=== PATIENT | female | born 1975 | race Caucasian/White ===

== ENCOUNTER 2020-06-10 11:35 | Inpatient (IN) | payer OTHER ==
[2020-06-10 12:14] VITALS: BMI 24.4
[2020-06-10] MEDS ORDERED: IBUPROFEN 400 MG TABLET (FP) PO PRN (13:02)
[2020-06-10] MEDS ORDERED: MENTHOL/PHENOL 1 EACH UD MM PRN (13:02)
[2020-06-10] MEDS ORDERED: MAGNESIUM CITRATE 300 ML BOTTLE PO PRN (13:02)
[2020-06-10] MEDS ORDERED: METHOCARBAMOL 500 MG TABLET PO PRN (13:02)
[2020-06-10] MEDS ORDERED: ACETAMINOPHEN 325 MG TABLET (FP) PO PRN (13:02)
[2020-06-10] MEDS ORDERED: BISMUTH SUBSALICYLATE 524 MG/30 ML UD PO PRN (13:02)
[2020-06-10] MEDS: hydrOXYzine PAMOATE 25 MG CAPSULE (FP) PO SCH ×3 (14:50→22:16)
[2020-06-10] MEDS: chlordiazePOXIDE HCL 25 MG CAPSULE PO PRN ×2 (14:50→18:31)
[2020-06-10 14:57] LABS: HEMATOCRIT 40.9 % (32.4-45.2); HEMOGLOBIN 13.6 GM/dL (10.7-15.3); MCH 29.7 pg (25.7-33.7); MCHC 33.2 g/dl (32.0-36.0); MEAN CELL VOLUME 89.5 fl (80-96); MEAN PLT VOLUME 7.9 fl (7.5-11.1); PLATELET COUNT 270 K/MM3 (134-434); RBC 4.57 M/mm3 (3.60-5.2); RDW 17.1 % (11.6-15.6)
[2020-06-10] MEDS: PRENATAL VITAMINS W/ FOLIC ACID TABLET (FP) PO SCH (14:58)
[2020-06-10 14:59] LABS: POTASSIUM 3.2 mmol/L (3.5-5.1)
[2020-06-10 15:03] LABS: ALBUMIN 3.6 g/dl (3.4-5.0); BLOOD UREA NITROGEN 11.2 mg/dL (7-18); CALCIUM 8.8 mg/dL (8.5-10.1)
[2020-06-10 15:06] LABS: CREATININE 0.5 mg/dL (0.55-1.3)
[2020-06-10 15:08] LABS: BILIRUBIN,TOTAL 1.2 mg/dL (0.2-1); TOT PROT 7.1 g/dl (6.4-8.2)
[2020-06-10] MEDS: chlordiazePOXIDE HCL 25 MG CAPSULE PO SCH ×2 (17:26→22:16)
[2020-06-10] MEDS: ONDANSETRON *ODT* 4 MG TABLET SL PRN (18:30)
[2020-06-10] MEDS: MAG HYDROX/AL HYDROX/SIMETH 30 ML UNIT-DOSE CUP PO PRN (20:42)
[2020-06-10] MEDS: THIAMINE HCL 100 MG TABLET (FP) PO SCH (22:16)
[2020-06-10] MEDS: traZODone HCL 50 MG TABLET (FP) PO SCH (22:16)
[2020-06-10] MEDS: MELATONIN 5 MG TABLETS PO SCH (22:16)
[2020-06-10] MEDS: PRAZOSIN HCL 1 MG CAPSULE PO SCH (22:17)
[2020-06-11] MEDS: hydrOXYzine PAMOATE 25 MG CAPSULE (FP) PO SCH ×5 (05:58→22:30)
[2020-06-11] MEDS: chlordiazePOXIDE HCL 25 MG CAPSULE PO SCH ×2 (05:58→10:18)
[2020-06-11] MEDS: PANTOPRAZOLE 40 MG TABLET PO SCH (10:17)
[2020-06-11] MEDS: PRENATAL VITAMINS W/ FOLIC ACID TABLET (FP) PO SCH (10:17)
[2020-06-11] MEDS ORDERED: LORazepam 1 MG TABLET PO PRN (11:38)
[2020-06-11] MEDS: ACETAMINOPHEN 325 MG TABLET (FP) PO PRN (15:57)
[2020-06-11] MEDS: MAG HYDROX/AL HYDROX/SIMETH 30 ML UNIT-DOSE CUP PO PRN (15:58)
[2020-06-11] MEDS: LORazepam 2 MG TABLET PO SCH ×2 (17:37→22:32)
[2020-06-11] MEDS: THIAMINE HCL 100 MG TABLET (FP) PO SCH (22:29)
[2020-06-11] MEDS: PRAZOSIN HCL 1 MG CAPSULE PO SCH (22:30)
[2020-06-11] MEDS: traZODone HCL 50 MG TABLET (FP) PO SCH (22:30)
[2020-06-11] MEDS: MELATONIN 5 MG TABLETS PO SCH (22:30)
[2020-06-12] MEDS ORDERED: chlordiazePOXIDE HCL 25 MG CAPSULE PO SCH (05:00)
[2020-06-12] MEDS: hydrOXYzine PAMOATE 25 MG CAPSULE (FP) PO SCH ×5 (06:08→22:30)
[2020-06-12] MEDS: LORazepam 2 MG TABLET PO SCH ×4 (06:08→22:30)
[2020-06-12] MEDS: PANTOPRAZOLE 40 MG TABLET PO SCH (10:18)
[2020-06-12] MEDS: PRENATAL VITAMINS W/ FOLIC ACID TABLET (FP) PO SCH (10:19)
[2020-06-12] MEDS: MAGNESIUM HYDROX 2400MG/30ML ORAL SUSPENSION 30 ML CUP PO PRN (14:22)
[2020-06-12] MEDS: traZODone HCL 50 MG TABLET (FP) PO SCH (22:29)
[2020-06-12] MEDS: THIAMINE HCL 100 MG TABLET (FP) PO SCH (22:29)
[2020-06-12] MEDS: PRAZOSIN HCL 1 MG CAPSULE PO SCH (22:29)
[2020-06-12] MEDS: MELATONIN 5 MG TABLETS PO SCH (22:29)
[2020-06-13] MEDS ORDERED: chlordiazePOXIDE HCL 10 MG CAPSULE PO PRN
[2020-06-13] MEDS ORDERED: chlordiazePOXIDE HCL 10 MG CAPSULE PO SCH (05:00)
[2020-06-13] MEDS: LORazepam 1 MG TABLET PO SCH ×4 (06:16→22:35)
[2020-06-13] MEDS: hydrOXYzine PAMOATE 25 MG CAPSULE (FP) PO SCH ×5 (06:16→22:35)
[2020-06-13] MEDS: MAGNESIUM HYDROX 2400MG/30ML ORAL SUSPENSION 30 ML CUP PO PRN (06:16)
[2020-06-13 07:08] LABS: SARS-CoV-2 NAA Not Detected (Not Detected)
[2020-06-13] MEDS: ONDANSETRON *ODT* 4 MG TABLET SL PRN (09:27)
[2020-06-13] MEDS: PRENATAL VITAMINS W/ FOLIC ACID TABLET (FP) PO SCH (10:32)
[2020-06-13] MEDS: PANTOPRAZOLE 40 MG TABLET PO SCH (10:32)
[2020-06-13] MEDS ORDERED: POTASSIUM CHLORIDE TABS 20 MEQ TABLET.ER (FP) PO ONE (12:59)
[2020-06-13] MEDS: THIAMINE HCL 100 MG TABLET (FP) PO SCH (22:35)
[2020-06-13] MEDS: PRAZOSIN HCL 1 MG CAPSULE PO SCH (22:35)
[2020-06-13] MEDS: traZODone HCL 50 MG TABLET (FP) PO SCH (22:35)
[2020-06-13] MEDS: BISACODYL 5 MG TABLET.DR (FP) PO PRN (22:36)
[2020-06-13] MEDS: MELATONIN 5 MG TABLETS PO SCH (23:15)
[2020-06-14] MEDS ORDERED: LORazepam 0.5 MG TABLET PO PRN
[2020-06-14] MEDS ORDERED: chlordiazePOXIDE HCL 10 MG CAPSULE PO SCH (05:00)
[2020-06-14] MEDS: hydrOXYzine PAMOATE 25 MG CAPSULE (FP) PO SCH ×5 (06:04→22:34)
[2020-06-14] MEDS: LORazepam 0.5 MG TABLET PO SCH ×4 (06:04→22:32)
[2020-06-14] MEDS: MAGNESIUM HYDROX 2400MG/30ML ORAL SUSPENSION 30 ML CUP PO PRN (06:05)
[2020-06-14] MEDS: ACETAMINOPHEN 325 MG TABLET (FP) PO PRN (06:06)
[2020-06-14] MEDS: PANTOPRAZOLE 40 MG TABLET PO SCH (10:44)
[2020-06-14] MEDS: PRENATAL VITAMINS W/ FOLIC ACID TABLET (FP) PO SCH (10:44)
[2020-06-14] MEDS: BISACODYL 5 MG TABLET.DR (FP) PO PRN (10:44)
[2020-06-14] MEDS: THIAMINE HCL 100 MG TABLET (FP) PO SCH (22:32)
[2020-06-14] MEDS: traZODone HCL 50 MG TABLET (FP) PO SCH (22:32)
[2020-06-14] MEDS: PRAZOSIN HCL 1 MG CAPSULE PO SCH (22:32)
[2020-06-14] MEDS: MELATONIN 5 MG TABLETS PO SCH (22:33)
[2020-06-15] MEDS ORDERED: chlordiazePOXIDE HCL 10 MG CAPSULE PO ONE (05:00)
[2020-06-15] MEDS ORDERED: LORazepam 0.5 MG TABLET PO ONE (05:00)
[2020-06-15] MEDS: hydrOXYzine PAMOATE 25 MG CAPSULE (FP) PO SCH (06:12)
[2020-06-15 07:50] VITALS: BP 93/63; PULSE 83; TEMP 96.9
== END 2020-06-15 09:27 | disposition home or self-care (01) | DRG 774 ==
LOC: YASAS 11:35 → Y6N 13:12
PROVIDERS: ADMIT Allergy & Immunology; ATTEND Allergy & Immunology
PROC: HZ2ZZZZ Detoxification Services for Substance Abuse Treatment (ICD-10-PCS; principal; 2020-06-10)
DX: F10.230 Alcohol dependence with withdrawal, uncomplicated (principal); F14.20 Cocaine dependence, uncomplicated; F41.1 Generalized anxiety disorder; F32.9 Major depressive disorder, single episode, unspecified; F43.10 Post-traumatic stress disorder, unspecified; D64.9 Anemia, unspecified; K22.70 Barrett's esophagus without dysplasia; K59.00 Constipation, unspecified; K21.9 Gastro-esophageal reflux disease without esophagitis; M26.69 Other specified disorders of temporomandibular joint; R74.01 Elevation of levels of liver transaminase levels; R73.9 Hyperglycemia, unspecified; Z62.810 Personal history of physical and sexual abuse in childhood; Z91.410 Personal history of adult physical and sexual abuse; Z90.49 Acquired absence of other specified parts of digestive tract
CPT/HCPCS: 36415; 80053; 81025; 84132; 85027; 86780; 93005; 93010; C9803; Q0162; U0003; U0005